=== PATIENT | male | born 1985 | race African-American/Black ===

== ENCOUNTER 2016-12-19 15:37 | Emergency (ER) | payer MEDICAID, OTHER ==
[2016-12-19 15:49] VITALS: BP 141/91
--- NOTE | 2016-12-19 16:16 | ED ---
Upper Extremity Pain - HPI Summary HPI Summary: 31 yr old male with pain in right wrist since 10/01 when he was arrested. The pain is worse with abduction of the right thumb and he points to the tendon doing this action. He states the pain began after being in handcuffs. He has no other complaints. Pain 01/03. - History of Current Complaint Chief Complaint: UCUpperExtremity Stated Complaint: RT WRIST INJURY Time Seen by Provider: 12/19/16 15:46 - Allergies/Home Medications Allergies/Adverse Reactions: Allergies Allergy/AdvReac Type Severity Reaction Status Date / Time No Known Allergies Allergy Verified 12/19/16 15:41 PMH/Surg Hx/FS Hx/Imm Hx Endocrine/Hematology History: Denies: Hx Diabetes, Hx Thyroid Disease Cardiovascular History: Reports: Hx Hypertension - DX IN 2007 NO MEDICATION AT THIS TIME Respiratory History: Reports: Hx Asthma - A CHILD Denies: Hx Chronic Obstructive Pulmonary Disease (COPD) GI History: Reports: Hx Gastroesophageal Reflux Disease - AT TIMES, Other GI Disorders - CRAMPING IN STOMACH ALL THE TIME Denies: Hx Ulcer Musculoskeletal History: Reports: Hx Arthritis - HIPS, Other Musculoskeletal History - RIGHT CLAVICLE PAIN AND RIGHT ROTATOR TEAR Sensory History: Denies: Hx Contacts or Glasses, Hx Hearing Aid Opthamlomology History: Denies: Hx Contacts or Glasses Neurological History: Reports: Hx Migraine - 2 X PER MONTHS- VISUAL AND HEARING PROBLEMS THEN PAIN OF MIGRAINE, Hx Seizures - A CHILD, Other Neuro Impairments/Disorders - NIGHT TERRORS CHILD Psychiatric History: Reports: Hx Anxiety - PATIENT INCREASED ANXIETY- STATES ISOLATES SELF- STATES FEELS FROM INCARCER, Hx Depression - AT TIMES- STATES PART OF ANXIETY - Surgical History Surgery Procedure, Year, and Place: pilondial cyst Hx Anesthesia Reactions: No Infectious Disease History: No Infectious Disease History: Denies: Hx Hepatitis, Hx Human Immunodeficiency Virus (HIV), Traveled Outside the [place] in Last 30 Days - Family History Known Family History: Positive: None - Social History Alcohol Use: Occasionally Substance Use Type: Reports: None Smoking Status (MU): Light Every Day Tobacco Smoker Type: Cigarettes Amount Used/How Often: 1/4 PPD Review of Systems Constitutional: Negative Eyes: Negative ENT: Negative Positive: Other - pain left wrist, thumb tendon area All Other Systems Reviewed And Are Negative: Yes Physical Exam Triage Information Reviewed: Yes Vital Signs On Initial Exam: Initial Vitals Temp Pulse Resp BP Pulse Ox 98.4 F 97 16 141/91 97 12/19/16 15:42 12/19/16 15:42 12/19/16 15:42 12/19/16 15:42 12/19/16 15:42 Vital Signs Reviewed: Yes Appearance: Positive: Well-Appearing, No Pain Distress Skin: Positive: Warm Head/Face: Positive: Normal Head/Face Inspection Eyes: Positive: Normal, EOMI ENT: Positive: Normal ENT inspection Neck: Positive: Supple, Nontender Cardiovascular: Positive: Pulses are Symmetrical in both Upper and Lower Extremities - upper extremities exam only Musculoskeletal: Positive: Other - tenderness over the right thumb abductor and extensor pollicus tendons as goes over the right wrist. Neurological: Positive: Normal, Sensory/Motor Intact, Alert, Oriented to Person Place, Time, CN Intact II-III Psychiatric: Positive: Normal - Юлия Coma Scale Best Eye Response: 4 - Spontaneous Procedures - Splinting Location: right forearm Hand-Made Type: orthoglass Splint: thumb spica Pre-Proc Neuro Vasc Exam: normal Post-Proc Neuro Vasc Exam: normal Diagnostics - Vital Signs Vital Signs Temp Pulse Resp BP Pulse Ox 12/19/16 15:42 98.4 F 97 16 141/91 97 - Laboratory Lab Statement: Any lab studies that have been ordered have been reviewed, and results considered in the medical decision making process. Course/Dx - Course Course Of Treatment: 31 yr old male with right thumb extensor and abductor policus tendon tenderness. Thumb spika splint applied by me. - Diagnoses Provider Diagnoses: Tendonitis, Sprain of wrist, right Discharge - Discharge Plan Condition: Good Disposition: HOME Prescriptions: Ibuprofen TAB* [Motrin TAB* 600 MG] 600 mg PO Q6H PRN #20 tab PRN Reason: Pain Scale 1-5 Patient Education Materials: Wrist Injury (ED), Splint Care (ED), Tendinitis ( ED) Forms: *Work Release Referrals: Williams Maynard MD [Medical Doctor] - Lourdes Adams MD [Primary Care Provider] -
--- NOTE | 2016-12-19 16:43 | RAD ---
INDICATION: Right wrist pain. TECHNIQUE: 3 views of the right wrist were obtained. FINDINGS: The bones are in normal alignment. No fracture is seen. Joint spaces appear maintained. IMPRESSION: NO EVIDENCE FOR FRACTURE.
== END 2016-12-19 17:18 | disposition home or self-care (01) ==
LOC: UCCORT 15:37
DX: S63.501A Unspecified sprain of right wrist, initial encounter (principal); X58.XXXA Exposure to other specified factors, initial encounter; Y93.9 Activity, unspecified; Y92.9 Unspecified place or not applicable; M65.849 Other synovitis and tenosynovitis, unspecified hand; F17.210 Nicotine dependence, cigarettes, uncomplicated
CPT/HCPCS: 99203; G0463

== ENCOUNTER 2017-02-06 18:23 | Emergency (ER) | payer SELFPAY ==
[2017-02-06 18:36] VITALS: BP 144/92
--- NOTE | 2017-02-06 19:09 | UC ---
Skin Complaint HPI - HPI Summary HPI Summary: patient has several small abcesses on the inner thigh and lower back. he has had these in the past, family HX of DM, but he states he doesnt think he has it. DOes not have a PCP. - History of Current Complaint Chief Complaint: UCSkin Time Seen by Provider: 02/06/17 18:50 Stated Complaint: skin complaint Hx Obtained From: Patient Onset/Duration: Sudden Onset, Lasting Days Skin Exposure Onset/Duration: Days Ago Timing: Constant Onset Severity: Moderate Current Severity: Moderate Location: Discrete Character: Swelling, Pruritus, Redness, Painful Aggravating: Touch Alleviating: Nothing - Allergy/Home Medications Allergies/Adverse Reactions: Allergies Allergy/AdvReac Type Severity Reaction Status Date / Time No Known Allergies Allergy Verified 02/06/17 18:29 Review of Systems Constitutional: Negative Skin: Other - multiple abcess Eyes: Negative ENT: Negative Respiratory: Negative Cardiovascular: Negative Gastrointestinal: Negative Genitourinary: Negative Motor: Negative Neurovascular: Negative Musculoskeletal: Negative Neurological: Negative Psychological: Negative All Other Systems Reviewed And Are Negative: Yes PMH/Surg Hx/FS Hx/Imm Hx Previously Healthy: Yes - Surgical History Surgical History: Yes Surgery Procedure, Year, and Place: pilondial cyst - Family History Known Family History: Positive: None - Social History Alcohol Use: Occasionally Substance Use Type: None Smoking Status (MU): Light Every Day Tobacco Smoker Type: Cigarettes Amount Used/How Often: 3 CIGS PER DAY Physical Exam Triage Information Reviewed: Yes Appearance: Well-Appearing, Well-Nourished, Pain Distress Vital Signs: Initial Vital Signs Temp 98.4 F 02/06/17 18:30 Pulse 100 02/06/17 18:30 Resp 12 02/06/17 18:30 BP 144/92 02/06/17 18:30 Pulse Ox 100 02/06/17 18:30 Vital Signs Reviewed: Yes Eye Exam: Normal Eyes: Positive: Conjunctiva Clear ENT Exam: Normal ENT: Positive: Normal ENT inspection, Hearing grossly normal, Pharynx normal, TMs normal Dental Exam: Normal Neck exam: Normal Neck: Positive: Supple, Nontender, No Lymphadenopathy Respiratory Exam: Normal Respiratory: Positive: Chest non-tender, Lungs clear, Normal breath sounds Cardiovascular Exam: Normal Cardiovascular: Positive: RRR, No Murmur, Pulses Normal Abdominal Exam: Normal Abdomen Description: Positive: Nontender, No Organomegaly, Soft Bowel Sounds: Positive: Present Musculoskeletal Exam: Normal Musculoskeletal: Positive: Strength Intact, ROM Intact, No Edema Neurological Exam: Normal Neurological: Positive: Alert, Muscle Tone Normal Psychological Exam: Normal Skin: Positive: Other - 1 abcess on back with a pustule, 4-5 on the inner thigh , smaller in size. Course/Dx - Course Course Of Treatment: hx obtained, exam performed ,meds reviewed, treated with abx, educated on warm compresses. return in 2 days if not improving. - Differential Diagnoses - Skin Complaint Differential Diagnoses: Abscess, Cellulitis - Diagnoses Provider Diagnoses: multiple abcess on inner thigh and back Discharge - Discharge Plan Condition: Stable Disposition: HOME Prescriptions: Cephalexin CAP* [Keflex CAP*] 500 mg PO TID #21 cap Sulfamethox/Trimethoprim DS* [Bactrim DS 800/160 TAB*] 1 tab PO BID #14 tab Patient Education Materials: Abscess (ED) Additional Instructions: 1. take the medication as prescribed. 2. USe the tylenol as needed. 3. Warm compresses as needed.
== END 2017-02-06 19:18 | disposition home or self-care (01) ==
LOC: UCCORT 18:23
DX: L02.419 Cutaneous abscess of limb, unspecified (principal); L02.212 Cutaneous abscess of back [any part, except buttock and flank]; F17.210 Nicotine dependence, cigarettes, uncomplicated
CPT/HCPCS: 99212; G0463

== ENCOUNTER 2017-02-09 13:24 | Emergency (ER) | payer SELFPAY ==
[2017-02-09 15:22] VITALS: BP 132/80
--- NOTE | 2017-02-09 16:21 | UC ---
General HPI - HPI Summary HPI Summary: complaint of abscess on thigh seen here on 02/06/17 for abscess on right thigh since visit the left thigh abscess had gotten bigger taking keflex and bactrim denies fever not taking any medication for pain - History of Current Complaint Chief Complaint: UCSkin Stated Complaint: RECHECK CYST Time Seen by Provider: 02/09/17 16:16 Hx Obtained From: Patient - Allergy/Home Medications Allergies/Adverse Reactions: Allergies Allergy/AdvReac Type Severity Reaction Status Date / Time No Known Allergies Allergy Verified 02/09/17 15:21 PMH/Surg Hx/FS Hx/Imm Hx Previously Healthy: Yes - Surgical History Surgical History: Yes Surgery Procedure, Year, and Place: pilondial cyst - Family History Known Family History: Positive: None Negative: Cardiac Disease, Hypertension, Diabetes - Social History Occupation: Employed Full-time Lives: With Family Alcohol Use: Occasionally Substance Use Type: None Smoking Status (MU): Light Every Day Tobacco Smoker Type: Cigarettes Amount Used/How Often: 3 CIGS PER DAY Cessation Counseling: Patient Advised to Stop Review of Systems Constitutional: Negative Skin: Other - abscess Eyes: Negative ENT: Negative Respiratory: Negative Cardiovascular: Negative Gastrointestinal: Negative Genitourinary: Negative Motor: Negative Neurovascular: Negative Musculoskeletal: Negative Neurological: Negative Psychological: Negative All Other Systems Reviewed And Are Negative: Yes Physical Exam Triage Information Reviewed: Yes Appearance: No Pain Distress, Well-Nourished, Obese Vital Signs: Initial Vital Signs Temp 98.3 F 02/09/17 15:17 Pulse 81 02/09/17 15:17 Resp 16 02/09/17 15:17 BP 132/80 02/09/17 15:17 Pulse Ox 100 02/09/17 15:17 Vital Signs Reviewed: Yes Eyes: Positive: Conjunctiva Clear ENT: Positive: Pharynx normal, TMs normal Neck: Positive: No Lymphadenopathy Respiratory: Positive: Lungs clear, Normal breath sounds, No respiratory distress Cardiovascular: Positive: RRR, No Murmur, Pulses Normal Abdomen Description: Positive: Nontender, Soft Bowel Sounds: Positive: Present Musculoskeletal: Positive: No Edema Neurological: Positive: Alert Psychological Exam: Normal Skin: Positive: Other - left thigh with abscess approx 2x2cm and draining purulent fluid, large amount of exudate expressed from abscess Course/Dx - Course Course Of Treatment: exam completed. abscess on left thigh already draiaing. continue antibiotics followup with PCP - Differential Dx - Multi-Symptom Provider Diagnoses: abscess on left thigh Discharge - Discharge Plan Condition: Stable Disposition: HOME Patient Education Materials: Abscess Follow-up (ED) Forms: *School Release, *Work Release Referrals: No Primary Care Phys,NOPCP [Primary Care Provider] - Additional Instructions: Your blood pressure is pre-hypertensive reading. Please contact your primary care provider within 1 day -4 weeks for further evaluation Please start antibiotic as directed Increase fluids and rest Take acetaminophen or ibuprofen for fever or pain continue to apply warm compresses and/or soak in bath with epsom salts twice a day Please review your discharge instructions. If your symptoms do not improve please call your primary care provider or return to urgent care.
== END 2017-02-09 16:43 | disposition home or self-care (01) ==
LOC: UCCORT 13:24
DX: Z51.89 Encounter for other specified aftercare (principal); Z72.0 Tobacco use; L02.416 Cutaneous abscess of left lower limb
CPT/HCPCS: 99211; G0463

== ENCOUNTER 2019-11-24 10:38 | Emergency (ER) | payer OTHER ==
--- NOTE | 2019-11-24 11:44 | UC ---
[facility] HPI HPI Summary: 34 year old male with cough. patient presents with nasal congestion, sinus pressure as well as productive cough for approximately 10 days. He states his symptoms are worsening and now moving into his chest. He denies any chest pain or shortness of breath. He denies any fevers or exposure to any patients or person with known coronavirus. He has had bronchitis in the past and thinks he that at this time. he has tried sudafed with some relief but since he is not improving he came to today and desires to have a telemed visit [facility] PMH Previously Healthy: Yes Endocrine/Hematology History: Denies: Hx Diabetes, Hx Thyroid Disease Cardiovascular History: Reports: Hx Hypertension - DX IN 2007 NO MEDICATION AT THIS TIME Respiratory History: Reports: Hx Asthma - A CHILD Denies: Hx Chronic Obstructive Pulmonary Disease (COPD) GI History: Reports: Hx Gastroesophageal Reflux Disease - AT TIMES, Other GI Disorders - CRAMPING IN STOMACH ALL THE TIME Denies: Hx Ulcer Musculoskeletal History: Reports: Hx Arthritis - HIPS, Other Musculoskeletal History - RIGHT CLAVICLE PAIN AND RIGHT ROTATOR TEAR Sensory History: Denies: Hx Contacts or Glasses, Hx Hearing Aid Opthamlomology History: Denies: Hx Contacts or Glasses Neurological History: Reports: Hx Migraine - 2 X PER MONTHS- VISUAL AND HEARING PROBLEMS THEN PAIN OF MIGRAINE, Hx Seizures - A CHILD, Other Neuro Impairments/Disorders - NIGHT TERRORS CHILD Psychiatric History: Reports: Hx Anxiety - PATIENT INCREASED ANXIETY- STATES ISOLATES SELF- STATES FEELS FROM INCARCER, Hx Depression - AT TIMES- STATES PART OF ANXIETY - Surgical History Surgery Procedure, Year, and Place: pilondial cyst Hx Anesthesia Reactions: No Infectious Disease History: No - Family History Known Family History: Positive: None Negative: Cardiac Disease, Hypertension, Diabetes - Social History Alcohol Use: Occasionally Substance Use Type: Reports: None Smoking Status (MU): Former Smoker Type: Cigarettes Amount Used/How Often: 3 CIGS PER DAY [facility] ROS All Other Systems Reviewed And Are Negative: Yes Constitutional: Negative Positive: Fatigue Eyes: Negative Positive: Ear Ache, Nasal Discharge Cardiovascular: Negative Respiratory: Negative Positive: Cough Gastrointestinal: Negative Genitourinary: Negative Musculoskeletal: Negative Skin: Negative Neurological/Mental Status: Negative Psychological: Normal [facility] PE Appearance: Positive: Well-Appearing, Alert and Oriented, Well-Nourished Skin: Negative: Diaphoretic Eyes: Positive: Normal ENT: Positive: Hearing grossly normal Respiratory/Lung Sounds: Positive: Normal Respiratory Effort, Cough. Negative: Unable to Speak in Full Sentences Musculoskeletal: Positive: Normal Tone Neurological: Positive: Alert, Oriented to Person Place, Time Psychiatric: Positive: Normal Telehealth Course/Dx Assessment/Plan: based on duration of symptoms. This time. If symptoms worsen emergency room. He was tested for COVID because he is anxious about having 3 small children at home who he could infect. If concerned he may return. He is aware to be self quarantined at this time. Provider Diagnoses: Upper respiratory infection Telehealth Disposition Provider Recommendation for Treatment: Urgent Care Telehealth Visit: Patient Consented Verbally to Telehealth Visit Telehealth Patient Statement: The patient should understand that they are communicating with their provider via a secure communication platform and that all the same privacy and confidentiality rules apply. They will also be responsible for copayments or coinsurances that apply to any Telehealth visit. Patient Identifiers: 2 Patient Identifiers Verified for Telehealth Visit Telehealth Visit Start Time: 11:45 Telehealth Visit End Time: 12:00 Telehealth Provider Attestation: The above services were appropriate to provide in a Telehealth setting.
--- NOTE | 2019-11-26 08:22 | UC ---
- Progress Note Progress Note: please call the pt. COVID19 undetected cont. with symptomatic treatment , may stop self Quarantine cont. with social distancing follow up as needed Course/Dx - Diagnoses Provider Diagnoses: Upper respiratory infection Discharge ED - Sign-Out/Discharge Documenting (check all that apply): Patient Departure All imaging exams completed and their final reports reviewed: No Studies - Discharge Plan Condition: Good Disposition: HOME Prescriptions: Azithromycin 250 mg PO DAILY #6 tablet Benzonatate CAP* [Tessalon 100 MG CAP*] 100 mg PO TID PRN #20 cap PRN Reason: Cough Patient Education Materials: Upper Respiratory Infection (ED) Forms: COVID-19 Tested & Isolation, *Work Release Referrals: No Primary Care Phys,NOPCP [Primary Care Provider] - 3 Days Additional Instructions: Today ayou were screened for coronavirus and are advised to be quarantined at home until your results return which is typically 3-4 days for the results to return. If you do not get a call from someone in a few days you may call us. - Billing Disposition and Condition Condition: GOOD Disposition: Home
== END 2019-11-24 12:00 | disposition home or self-care (01) ==
LOC: UCCORT 10:38
DX: J06.9 Acute upper respiratory infection, unspecified (principal); Z20.828 Contact with and (suspected) exposure to other viral communicable diseases; I10 Essential (primary) hypertension; Z87.891 Personal history of nicotine dependence
CPT/HCPCS: 87635; 99211; G0463